=== PATIENT | male | born 1970 | race Caucasian/White ===

== ENCOUNTER 2024-09-17 10:27 | Outpatient (AMB) | payer OTHER, SELFPAY ==
--- NOTE | 2024-09-17 10:43 | HO.NEPHOV_ITS ---
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 He denies having DM. He has H/O gout and takes colchicine as on a needed basis. He does not take any excess NSAID's , PPI and maintain good hydration. He has no H/O macroscopic or microscopic hematuria, flank pain, renal calculi, night sweats, weight loss, prostatic symptoms, hearing deficits, edema, H/O proteinuria. He denied any H/O vascular disease including CAD, CVA, carotid disease, AAA, PAD. He has no H/O CHF. He denied any awareness of ESRD or renal transplantation in the family. He denied chest pain, SOB, PND, orthopnea, edema, dizziness, joint pains, photosensitivity, new skin rashes, epistaxis or any other focal or systemic complaints. He denied any awareness of renal dysfunction or proteinuria. He has no H/O malignancy. His blood pressure has been labile. He feels well. [facility] Medical History (Updated 09/17/24 @ 11:12 by Maxwell Trejo MD) Gout High blood uric acid level Surgical History (Updated 09/17/24 @ 10:45 by Shruti Denis MA) H/O hemorrhoidectomy H/O shoulder surgery Hx of appendectomy H/O neck surgery Family History (Updated 09/17/24 @ 10:44 by Shruti Deins MA) Mother Thyroid disease Father Gout Type II diabetes mellitus Social History (Updated 09/17/24 @ 10:43 by Shruti Denis MA) Alcohol intake: never Patient Tobacco Use Status: Never used Tobacco Review of Systems Const All systems reviewed & are unremarkable except as noted in HPI and below Physical Exam Vital Signs: Last Vital Signs Pulse 72 09/17/24 10:49 BP 130/90 H 09/17/24 10:49 Pulse Ox 96 09/17/24 10:49 Oxygen Delivery Method Room Air 09/17/24 10:49 BMI result Body Mass Index 32.5 Const General: comfortable and no acute distress Orientation/consciousness: patient oriented x3 HEENT Head: Yes normocephalic Mouth: Normal oral and palatal mucosa present Eyes EOM: EOMs intact bilaterally Neck Neck: Yes supple Resp Auscultation: clear to auscultation bilaterally Cardio Jugular venous distension: no JVD Rate: regular rate GI Palpation (GI): Soft to palpation Auscultation: normal bowel sounds General: Yes no CVA tenderness Back/Spine/Pelvis Back: no CVA tenderness Skin General skin exam: no rashes or lesions noted Neuro General: patient oriented x3 and moves all extremities Extrem General: Yes no pedal edema Assessment & Plan Assessment & Plan (1) Labile blood pressure: Code(s): R09.89 - Other specified symptoms and signs involving the circulatory and respiratory systems Category: Medical Plan Reid has no known H/O renal dysfunction or proteinuria. He has no edema or hematuria. He has no known family H/O renal dysfunction, ESRD or renal transplantation. He takes colchicine as needed for high uric acid when he gets gout exacerbation. He should continue to avoid excess NSAID's and maintain good hydration. I have ordered work up including Doppler of renal arteries. If his BP remains labile, I shall get a 24 hour BPM. He should cut back sodium in the diet and maintain good life style with increased physical activity. He will benefit from low dose Allopurinol to keep his uric acid under 6.0 if his serum uric acid is persistently high. Further management is pending evolving data. Answered all his questions and F/U was given Orders: Orders Electrolytes 09/17/24 R09.89 - Other specified symptoms and signs involving the circulatory and respiratory systems Blood Urea Nitrogen 09/17/24 R09.89 - Other specified symptoms and signs involving the circulatory and respiratory systems UA and rflx microscopic 09/17/24 R09.89 - Other specified symptoms and signs involving the circulatory and respiratory systems Protein Creatinine Ratio, Ur 09/17/24 R09.89 - Other specified symptoms and signs involving the circulatory and respiratory systems US renal BI 3 Weeks R09.89 - Other specified symptoms and signs involving the circulatory and respiratory systems Anti DNA DS Antibody 09/17/24 R09.89 - Other specified symptoms and signs involving the circulatory and respiratory systems Proteinase 3 PR3 Antibodies 09/17/24 - Other specified symptoms and signs involving the circulatory and respiratory systems Anti Glomerular Basement Memb 09/17/24 - Other specified symptoms and signs involving the circulatory and respiratory systems Complement C4 09/17/24 - Other specified symptoms and signs involving the circulatory and respiratory systems Immunofixation Pnl, Serum 09/17/24 - Other specified symptoms and signs involving the circulatory and respiratory systems Phospholipase A2 Receptor Pnl 09/17/24 - Other specified symptoms and signs involving the circulatory and respiratory systems Complete Blood Count Auto Diff 09/17/24 - Other specified symptoms and signs involving the circulatory and respiratory systems TSH reflex Free T4 09/17/24 - Other specified symptoms and signs involving the circulatory and respiratory systems Hemoglobin A1c 09/17/24 - Other specified symptoms and signs involving the circulatory and respiratory systems Uric Acid 09/17/24 - Other specified symptoms and signs involving the circulatory and respiratory systems Calcium 09/17/24 - Other specified symptoms and signs involving the circulatory and respiratory systems Creatinine 09/17/24 - Other specified symptoms and signs involving the circulatory and respiratory systems Phosphorus 09/17/24 - Other specified symptoms and signs involving the circulatory and respiratory systems ANCA Vasculitides 09/17/24 - Other specified symptoms and signs involving the circulatory and respiratory systems US renal doppler 3 Weeks - Other specified symptoms and signs involving the circulatory and respiratory systems Myeloperoxidase Antibody 09/17/24 - Other specified symptoms and signs involving the circulatory and respiratory systems Complement C3 09/17/24 - Other specified symptoms and signs involving the circulatory and respiratory systems Immunofixation, Random Urine 09/17/24 - Other specified symptoms and signs involving the circulatory and respiratory systems Coding Level of Care Code New Pt Level 4 (93648) Diagnoses Labile blood pressure
[2024-09-17 10:49] VITALS: BP 130/90; PULSE 72; O2SAT 96; BMI 32.5
== END 2024-09-17 11:20 | disposition home or self-care (01) ==
PROVIDERS: Visit Provider Internal Medicine Nephrology
DX: R09.89 Other specified symptoms and signs involving the circulatory and respiratory systems (principal)
CPT/HCPCS: 99204

== ENCOUNTER 2024-10-13 08:29 | Outpatient (REF) | payer OTHER, SELFPAY ==
--- NOTE | ~2024-10-13 | US_ITS ---
CLINICAL HISTORY: R09.89 - Other specified symptoms and signs involving the circulatory an... US renal duplex ultrasound Comparison: None Technique: Real time duplex ultrasound imaging was performed by the circuit clerk. Multiple sales representative rural power static images were saved for review. Findings: Aorta: 99 cm/s. Right kidney: 11.2 x 5.3 cm without hydronephrosis. 1 cm lower pole cyst. Main renal artery peak systolic velocities: Proximal: 63 cm/s Mid: 106 cm/s Distal: 63 cm/s Renal to aortic ratio: 1.1 RI: 0.57-0.60. Left kidney: 11.4 x 5.3 cm without hydronephrosis. 1.3 cm upper pole septated cyst. Main renal artery peak systolic velocities: Proximal: 113 cm/s Mid: 123 cm/s Distal: 45 cm/s Renal to aortic ratio: 1.2 RI: 0.58-0.68. Bilateral renal veins are patent. Impression: No significant velocity altering stenosis This document has been electronically signed by: Evans Layne MD on 10/13/2024 23:30:49
== END 2024-10-13 08:30 | disposition home or self-care (01) ==
LOC: HO.US 08:29
PROVIDERS: Visit Provider Internal Medicine Nephrology
DX: R09.89 Other specified symptoms and signs involving the circulatory and respiratory systems (principal)
CPT/HCPCS: 93975

== ENCOUNTER → 2024-10-13 08:31 | Outpatient (BNV) | payer OTHER, SELFPAY | PROVIDERS: Visit Provider Radiology Diagnostic Radiology | DX: R09.89 Other specified symptoms and signs involving the circulatory and respiratory systems (principal) | CPT/HCPCS: 93975 ==

== ENCOUNTER 2024-10-15 13:35 | Outpatient (AMB) | payer OTHER, SELFPAY ==
--- NOTE | 2024-10-15 13:58 | HO.NEPHOV ---
Vital Signs 10/15/24 13:59 Height 5 ft 3 in Weight 185 lb BMI 32.8 BP 118/70 Blood Pressure Location Rt brachial Position Sitting Pulse 82 Pulse Source Pulse Oximeter Pulse Oximetry (%) 95 Oxygen Delivery Method Room Air Intake Visit Reasons: 1mon follow-up w/labs Conf Intake Note: Patient here for a follow-up. 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 He denies having DM. He has H/O gout and takes colchicine as on a needed basis. He does not take any excess NSAID's , PPI and maintain good hydration. He has no H/O macroscopic or microscopic hematuria, flank pain, renal calculi, night sweats, weight loss, prostatic symptoms, hearing deficits, edema, H/O proteinuria. He denied any H/O vascular disease including CAD, CVA, carotid disease, AAA, PAD. He has no H/O CHF. He denied any awareness of ESRD or renal transplantation in the family. He denied chest pain, SOB, PND, orthopnea, edema, dizziness, joint pains, photosensitivity, new skin rashes, epistaxis or any other focal or systemic complaints. He denied any awareness of renal dysfunction or proteinuria. He has no H/O malignancy. His blood pressure occasionally has been labile. He has not had gout exacerbations since last visit. He feels well. [facility] Medical History Gout High blood uric acid level Surgical History H/O hemorrhoidectomy H/O shoulder surgery Hx of appendectomy H/O neck surgery Family History Mother Thyroid disease Father Gout Type II diabetes mellitus Social History Alcohol intake: never Patient Tobacco Use Status: Never used Tobacco Review of Systems Const All systems reviewed & are unremarkable except as noted in HPI and below Physical Exam Vital Signs: Last Vital Signs Pulse 82 06/26/25 13:59 BP 118/70 10/15/24 13:59 Pulse Ox 95 10/15/24 13:59 Oxygen Delivery Method Room Air 10/15/24 13:59 BMI result Body Mass Index 32.8 Const General: comfortable and no acute distress Orientation/consciousness: patient oriented x3 HEENT Head: Yes normocephalic Mouth: Normal oral and palatal mucosa present Eyes EOM: EOMs intact bilaterally Neck Neck: Yes supple Resp Auscultation: clear to auscultation bilaterally Cardio Jugular venous distension: no JVD Rate: regular rate GI Palpation (GI): Soft to palpation Auscultation: normal bowel sounds General: Yes no CVA tenderness Back/Spine/Pelvis Back: no CVA tenderness Skin General skin exam: no rashes or lesions noted Neuro General: patient oriented x3 and moves all extremities Extrem General: Yes no pedal edema Results Reviewed Nephrology Results: Renal US 10/13/24 Assessment & Plan Assessment & Plan (1) Labile blood pressure: Code(s): R09.89 - Other specified symptoms and signs involving the circulatory and respiratory systems Category: Medical (2) Renal cyst: Code(s): N28.1 - Cyst of kidney, acquired Category: Medical (3) Hyperuricemia: Code(s): E79.0 - Hyperuricemia without signs of inflammatory arthritis and tophaceous disease Category: Medical Plan Reid has no known H/O renal dysfunction or proteinuria. He has no edema or hematuria. He has no known family H/O renal dysfunction, ESRD or renal transplantation. He takes colchicine as needed for high uric acid when he gets gout exacerbation. I started him on Allopurinol 100 mg daily. He should continue to avoid excess NSAID's and maintain good hydration. Doppler of renal arteries did not show any JENNIFER but has B/L renal cysts, which needs follow up. If his BP remains labile, I shall get a 24 hour BPM. He should cut back sodium in the diet and maintain good life style with increased physical activity. Further management is pending evolving data. Answered all his questions and F/U was given Orders: Orders Protein Creatinine Ratio, Ur 1 Year R09.89 - Other specified symptoms and signs involving the circulatory and respiratory systems, N28.1 - Cyst of kidney, acquired UA and rflx microscopic 1 Year R09.89 - Other specified symptoms and signs involving the circulatory and respiratory systems, N28.1 - Cyst of kidney, acquired Electrolytes 1 Year R09.89 - Other specified symptoms and signs involving the circulatory and respiratory systems, N28.1 - Cyst of kidney, acquired Blood Urea Nitrogen 1 Year R09.89 - Other specified symptoms and signs involving the circulatory and respiratory systems, N28.1 - Cyst of kidney, acquired Creatinine 1 Year R09.89 - Other specified symptoms and signs involving the circulatory and respiratory systems, N28.1 - Cyst of kidney, acquired Medications: New allopurinol 100 mg PO DAILY 90 tabs 4RF Coding Level of Care Code Est Pt Level 4 (35116) Diagnoses Labile blood pressure R09.89 Renal cyst N28.1 Hyperuricemia E79.0
[2024-10-15 13:59] VITALS: BP 118/70; PULSE 82; O2SAT 95; BMI 32.8
== END 2024-10-15 14:36 | disposition home or self-care (01) ==
LOC: HO.HKAS 13:35
PROVIDERS: Visit Provider Internal Medicine Nephrology
DX: R09.89 Other specified symptoms and signs involving the circulatory and respiratory systems (principal); N28.1 Cyst of kidney, acquired; E79.0 Hyperuricemia without signs of inflammatory arthritis and tophaceous disease
CPT/HCPCS: 99214

== ENCOUNTER 2025-04-01 09:11 | Outpatient (AMB) | payer OTHER, SELFPAY ==
--- NOTE | 2025-04-01 09:15 | HO.NEPHOV_ITS ---
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 He denies having DM. He has H/O gout and used to take colchicine as on a needed basis. He does not take any excess NSAID's , PPI and maintain good hydration. He has no H/O macroscopic or microscopic hematuria, flank pain, renal calculi, night sweats, weight loss, prostatic symptoms, hearing deficits, edema, H/O protei santy. He denied any H/O vascular disease including CAD, CVA, carotid disease, AAA, PAD. He has no H/O CHF. He denied any awareness of ESRD or renal transplantation in the family. He denied chest pain, SOB, PND, orthopnea, edema, dizziness, joint pains, photosensitivity, new skin rashes, epistaxis or any other focal or systemic complaints. He denied any awareness of renal dysfunction or proteinuria. He has no H/O malignancy. His blood pressure occasionally has been labile. He has not had gout exacerbations since last visit. He feels well otherwise. [facility] Medical History Gout High blood uric acid level Surgical History H/O hemorrhoidectomy H/O shoulder surgery Hx of appendectomy H/O neck surgery Family History Mother Thyroid disease Father Gout Type II diabetes mellitus Social History Alcohol intake: never Patient Tobacco Use Status: Never used Tobacco Review of Systems Const All systems reviewed & are unremarkable except as noted in HPI and below Physical Exam Vital Signs: Last Vital Signs Pulse 90 04/01/25 09:16 BP 110/80 04/01/25 09:16 Pulse Ox 95 12/11/25 09:16 Oxygen Delivery Method Room Air 04/01/25 09:16 BMI result Body Mass Index 34.3 Const General: comfortable and no acute distress Orientation/consciousness: patient oriented x3 HEENT Head: Yes normocephalic Mouth: Normal oral and palatal mucosa present Eyes EOM: EOMs intact bilaterally Neck Neck: Yes supple Resp Auscultation: clear to auscultation bilaterally Cardio Jugular venous distension: no JVD Rate: regular rate Heart sounds: Murmur heart sound present GI Palpation (GI): Soft to palpation Auscultation: normal bowel sounds General: Yes no CVA tenderness Back/Spine/Pelvis Back: no CVA tenderness Skin General skin exam: no rashes or lesions noted Neuro General: patient oriented x3 and moves all extremities Extrem Other: Right foot- MTP red hot and swollen General: Yes no pedal edema Results Reviewed Nephrology Results: Renal US 10/13/24 Assessment & Plan Assessment & Plan (1) Labile blood pressure: Code(s): R09.89 - Other specified symptoms and signs involving the circulatory and respiratory systems Category: Medical (2) Renal cyst: Code(s): N28.1 - Cyst of kidney, acquired Category: Medical (3) Hyperuricemia: Code(s): E79.0 - Hyperuricemia without signs of inflammatory arthritis and tophaceous disease Category: Medical (4) Gout attack: Code(s): M10.9 - Gout, unspecified Category: Medical Qualifiers: Gout site: foot Gout etiology: idiopathic Laterality: right Qualified Code(s): M10.071 - Idiopathic gout, right ankle and foot Plan Reid has no known H/O renal dysfunction or proteinuria. He has no edema or hematuria. He has no known family H/O renal dysfunction, ESRD or renal transplantation. He takes colchicine as needed for high uric acid when he gets gout exacerbation. I started him on Prednsione 20 mg daily for 5 days and once he has done with it he was asked to increase Allopurinol to 200 mg daily( may need 300 mg daily). He should continue to avoid excess NSAID's and maintain good hydration. Doppler of renal arteries did not show any JENNIFER but has B/L renal cysts, which needs follow up. If his BP remains labile, I shall get a 24 hour BPM. He should cut back sodium in the diet and maintain good life style with increased physical activity. Further management is pending evolving data. Answered all his questions and F/U was given Orders: Orders Uric Acid Today E79.0 - Hyperuricemia without signs of inflammatory arthritis and tophaceous disease, M10.9 - Gout, unspecified, N28.1 - Cyst of kidney, acquired, R09.89 - Other specified symptoms and signs involving the circulatory and respiratory systems Electrolytes Today E79.0 - Hyperuricemia without signs of inflammatory arthritis and tophaceous disease, M10.9 - Gout, unspecified, N28.1 - Cyst of kidney, acquired, R09.89 - Other specified symptoms and signs involving the circulatory and respiratory systems Calcium Today E79.0 - Hyperuricemia without signs of inflammatory arthritis and tophaceous disease, M10.9 - Gout, unspecified, N28.1 - Cyst of kidney, acquired, R09.89 - Other specified symptoms and signs involving the circulatory and respiratory systems Blood Urea Nitrogen Today E79.0 - Hyperuricemia without signs of inflammatory arthritis and tophaceous disease, M10.9 - Gout, unspecified, N28.1 - Cyst of kidney, acquired, R09.89 - Other specified symptoms and signs involving the circulatory and respiratory systems Creatinine Today E79.0 - Hyperuricemia without signs of inflammatory arthritis and tophaceous disease, M10.9 - Gout, unspecified, N28.1 - Cyst of kidney, acquired, R09.89 - Other specified symptoms and signs involving the circulatory and respiratory systems Medications: New prednisone 20 mg PO DAILY 5 tabs 0RF Changed From allopurinol 100 mg PO DAILY 90 tabs 4RF To allopurinol 200 mg PO DAILY 90 tabs 4RF From colchicine PO PRN To colchicine 0.6 mg orally - take for gout flare as instructed PRN; 30 tabs 0RF Acute Gout flare Coding Level of Care Code Est Pt Level 4 (23312) Diagnoses Labile blood pressure R09.89 Renal cyst N28.1 Hyperuricemia E79.0 Acute idiopathic gout of right foot M10.071 Gout site: foot Gout etiology: idiopathic Laterality: right
[2025-04-01 09:16] VITALS: BP 110/80; PULSE 90; O2SAT 95; BMI 34.3
== END 2025-04-01 09:37 | disposition home or self-care (01) ==
LOC: HO.HKAS 09:12
PROVIDERS: Visit Provider Internal Medicine Nephrology
DX: R09.89 Other specified symptoms and signs involving the circulatory and respiratory systems (principal); N28.1 Cyst of kidney, acquired; E79.0 Hyperuricemia without signs of inflammatory arthritis and tophaceous disease; M10.071 Idiopathic gout, right ankle and foot
CPT/HCPCS: 99214